=== PATIENT | male | born 1970 | race Caucasian/White ===

== ENCOUNTER → 2024-01-25 11:52 | Outpatient (REF) | payer SELFPAY | LOC: HWRAD 11:52 | PROVIDERS: ATTENDING PHYSICIAN Family Medicine | DX: E78.00 Pure hypercholesterolemia, unspecified (principal) | CPT/HCPCS: 75571 ==

== ENCOUNTER → 2024-02-15 13:14 | Outpatient (REF) | payer BC, SELFPAY | LOC: DHSLP 13:14 | PROVIDERS: ATTENDING PHYSICIAN Internal Medicine Critical Care Medicine; FAMILY PHYSICIAN Family Medicine | DX: G47.30 Sleep apnea, unspecified (principal); R06.83 Snoring | CPT/HCPCS: 95800 ==